=== PATIENT | male | born 1965 | race Caucasian/White ===

== ENCOUNTER → 2021-07-26 | Outpatient (CLI) | payer BC | LOC: CT 09:07 | DX: R91.1 Solitary pulmonary nodule (principal) | CPT/HCPCS: 36415; 71260; 82565; Q9967 ==

== ENCOUNTER 2022-03-05 16:01 | Emergency (ER) | payer BC ==
[2022-03-05 18:33] LABS: RED BLOOD COUNT 4.77 M/UL (4.20-5.50); WHITE BLOOD COUNT 11.1 K/UL (4.5-11.0)
[2022-03-05] MEDS ORDERED: METOPROLOL TART25 MG PO (20:37)
[2022-03-05] MEDS ORDERED: CATAPRES 0.1MG0.1 MG PO (20:38)
== END 2022-03-05 21:01 | disposition home or self-care (01) ==
LOC: ER1 16:01
PROVIDERS: Preventive Medicine Occupational Medicine
DX: I10 Essential (primary) hypertension (principal); N28.9 Disorder of kidney and ureter, unspecified
CPT/HCPCS: 70450; 71045; 80053; 82550; 82553; 83690; 83880; 84484; 85025; 85652; 86140; 93005; 99284